=== PATIENT | male | born 1950 | race Caucasian/White ===

== ENCOUNTER 2017-03-27 22:52 | Emergency (ER) | payer OTHER ==
[~2017-03-27] VITALS: Ht 182.9 cm; Wt 133.4 kg
[~2017-03-27 22:52] MED LIST: ADULT MULTIVI200 MCG PO; COLACE100 MG PO; COUMADIN,JANTOVE1 MG PO; CYANOCOBALAMI100 MCG PO; Coumadin Protocol PO; DILAUDID2 MG PO; FEOSOL325 MG PO; Feosol PO; IRON325 M1 PO; LISINOPRIL-HCT1 EACH PO; Lasix PO; MIRALAX17 GM PO; Move Free Advanced T PO; OXYCODONE HCL5 MG PO; PANTOPRAZOLE SO40 MG PO; Percocet 5/325,Endoc PO; Protonix PO; ROBAXIN500 MG PO; Senokot S,Pericolace PO; THERAGRAN1 TABLET PO; Theragran PO; Xarelto PO; Zestoretic,Prinzide PO
[2017-03-28 01:14] VITALS: BP 96/67
== END 2017-03-28 01:17 | disposition home or self-care (01) ==
LOC: EME 22:52
DX: Z48.03 Encounter for change or removal of drains (principal); I10 Essential (primary) hypertension; K21.9 Gastro-esophageal reflux disease without esophagitis; Z98.84 Bariatric surgery status; Z87.19 Personal history of other diseases of the digestive system; Z87.891 Personal history of nicotine dependence
CPT/HCPCS: 99281; 99284

== ENCOUNTER 2017-07-03 05:19 | Day surgery (SDC) | payer OTHER ==
[~2017-07-03] VITALS: Ht 182.9 cm; Wt 129.2 kg
[~2017-07-03 05:19] MED LIST changes: +ASCORBIC ACID100 MG PO; +REQUIP0.5 MG PO
[2017-07-03 06:34] VITALS: BP 116/77
[2017-07-03] MEDS ORDERED: NORCO 5/3251 TABLET PO (09:45)
[2017-07-03 11:15] VITALS: BP 126/81
[2017-07-03 12:10] VITALS: BP 135/73
== END 2017-07-03 12:20 | disposition home or self-care (01) ==
LOC: SDC 05:19
PROC: 0YU50JZ Supplement Right Inguinal Region with Synthetic Substitute, Open Approach (ICD-10-PCS; principal; 2017-07-03)
DX: K40.20 Bilateral inguinal hernia, without obstruction or gangrene, not specified as recurrent (principal); D17.6 Benign lipomatous neoplasm of spermatic cord; N43.3 Hydrocele, unspecified; I10 Essential (primary) hypertension; K21.0 Gastro-esophageal reflux disease with esophagitis; Z98.84 Bariatric surgery status; Z87.891 Personal history of nicotine dependence
CPT/HCPCS: 88302; C1781; J0330; J0690; J1100; J1170; J2250; J2405; J2765; J3010; S0020

== ENCOUNTER 2017-07-26 10:13 | Day surgery (SDC) | payer OTHER ==
[~2017-07-26] VITALS: Ht 182.9 cm; Wt 127.0 kg
[~2017-07-26 10:13] MED LIST changes: -ASCORBIC ACID100 MG PO; +ASCORBIC ACID250 MG PO; +NORCO 5/3251 TABLET PO; +VITAMIN B-121000 MC3 PO
[2017-07-26 10:34] VITALS: BP 114/78
[2017-07-26 11:02] LABS: HEMATOCRIT 42.3 % (38.0-50.0); HEMOGLOBIN 13.9 G/DL (12.5-16.6); MCV 98.4 FL (86-99)
[2017-07-26 11:20] LABS: CHLORIDE 106 MEQ/L (99-109); POTASSIUM 4.1 MEQ/L (3.7-5.4); SODIUM 140 MEQ/L (136-147)
[2017-07-26 11:26] LABS: CREATININE 0.7 MG/DL (0.6-1.3); GFR ESTIMATE (CALCULATED) > 59 mL/min/ (58.99-99999); GLUCOSE 88 mg/dL (70-99); UREA NITROGEN (BUN) 17 mg/dL (9-23)
[2017-07-26] MEDS ORDERED: NORCO 5/3251 TABLET PO (16:51)
[2017-07-26 17:10] VITALS: BP 125/76
[2017-07-26 17:41] VITALS: BP 122/68
== END 2017-07-26 17:55 | disposition home or self-care (01) ==
LOC: SDC 10:13
PROVIDERS: Surgery
DX: K40.90 Unilateral inguinal hernia, without obstruction or gangrene, not specified as recurrent (principal); D17.6 Benign lipomatous neoplasm of spermatic cord; I10 Essential (primary) hypertension; K21.0 Gastro-esophageal reflux disease with esophagitis; Z98.84 Bariatric surgery status; Z87.891 Personal history of nicotine dependence
CPT/HCPCS: 80048; 85014; 85018; C1781; J0690; J1100; J1170; J2405; J2710; J3010; S0020